=== PATIENT | female | born 1990 ===

== ENCOUNTER 2019-07-13 15:48 | Inpatient (IN) | payer OTHER ==
[2019-07-13] MEDS ORDERED: Butorphanol 1 MG/ML SDV IVPUSH PRN (20:16)
[2019-07-13] MEDS ORDERED: Water For Irrigation,Sterile 1,000 ML Container IRR PRN (20:16)
[2019-07-13] MEDS ORDERED: Tranexamic Acid 1,000 MG in Sodium Chloride 0.9% 100 ML IV PRN (20:16)
[2019-07-13] MEDS ORDERED: Sodium Chloride 0.9% 10 ML SDV IV PRN (20:16)
[2019-07-13] MEDS ORDERED: Sodium Chloride 0.9% 2.5 ML Syringe FLUSH PRN (20:16)
[2019-07-13] MEDS ORDERED: Lidocaine 1% 50 ML MDV INJECT PRN (20:16)
[2019-07-13] MEDS ORDERED: Terbutaline 1 MG/ML SDV SUBCUT PRN (20:16)
[2019-07-13] MEDS ORDERED: Ondansetron 4 MG/2 ML SDV IVPUSH PRN (20:16)
[2019-07-13] MEDS ORDERED: Misoprostol 200 MCG Tab PO PRN (20:16)
[2019-07-13] MEDS ORDERED: Carboprost Tromethamine 250 MCG/1 ML Amp IM PRN (20:16)
[2019-07-13] MEDS ORDERED: Sodium Chloride 0.9% 10 ML Syringe FLUSH PRN (20:16)
[2019-07-13] MEDS ORDERED: Methylergonovine 0.2 MG/1 ML Amp IM PRN (20:16)
[2019-07-13] MEDS ORDERED: Oxytocin/0.9 % Sodium Chloride 30 UNIT/500 ML BAG IV SCH ×2 (20:30)
[2019-07-13] MEDS: Misoprostol 25 MCG (1/4 of 100 MCG) Tab VAG PRN (20:42)
[2019-07-14] MEDS: Misoprostol 25 MCG (1/4 of 100 MCG) Tab VAG PRN (01:18)
[2019-07-14] MEDS: Lactated Ringers 1,000 ML IV SCH ×2 (05:49→14:06)
[2019-07-14] MEDS: Nalbuphine 10 MG/1 ML Vial IVPUSH PRN ×2 (09:05→12:33)
[2019-07-14] MEDS ORDERED: fentaNYL 100 MCG/2 ML SDV ONE (13:42)
[2019-07-14] MEDS ORDERED: Acetaminophen 500 MG Tab PO PRN ×2 (16:38)
[2019-07-14] MEDS ORDERED: Ibuprofen 800 MG Tab PO PRN (16:38)
[2019-07-14] MEDS ORDERED: Witch Hazel Medicated Pads 40/Jar TOP PRN (16:38)
[2019-07-14] MEDS ORDERED: Bisacodyl 10 MG Supp RECTAL PRN (16:38)
[2019-07-14] MEDS ORDERED: Ibuprofen 400 MG Tab PO PRN (16:38)
[2019-07-14] MEDS ORDERED: Lanolin 100% Cream 7 GM Tube TOP PRN (16:38)
[2019-07-14] MEDS ORDERED: Docusate Sodium 100 MG Cap PO PRN (16:38)
[2019-07-14] MEDS ORDERED: Benzocaine/Menthol 20%-0.5% Spray 78 GM Cannister TOP PRN (16:38)
--- NOTE | 2019-07-14 19:21 | PCM.PREANE ---
Preanesthetic Assessment - Anesthesia/Transfusion/Family Hx Anesthesia History: Prior Anesthesia Without Reaction Family History of Anesthesia Reaction: No Transfusion History: No Prior Transfusion(s) Intubation History: Unknown - Review of Systems General: No Symptoms Pulmonary: No Symptoms Cardiovascular: No Symptoms Gastrointestinal: No Symptoms Neurological: No Symptoms Other: Reports: None - Physical Assessment Height: 5 ft 6 in Weight: 92.986 kg ASA Class: 2 Mental Status: Alert & Oriented x3 Airway Class: Mallampati = 1 Dentition: Reports: Normal Dentition Thyro-Mental Finger Breadths: 3 Mouth Opening Finger Breadths: 3 ROM/Head Extension: Full Lungs: Clear to Auscultation, Normal Respiratory Effort Cardiovascular: Regular Rate, Regular Rhythm - Lab Values: Laboratory Last Values WBC 9.24 K/uL (4.0-11.0) 07/13/19 20: RBC 4.50 M/uL (4.30-5.90) 07/13/19 20: Hgb 12.5 g/dL (12.0-16.0) 07/13/19 20: Hct 39.1 % (36.0-46.0) 07/13/19 20: MCV 86.9 fL (80.0-98.0) 07/13/19 20: MCH 27.8 pg (27.0-32.0) 07/13/19 20: MCHC 32.0 g/dL (31.0-37.0) 07/13/19 20: RDW Std Deviation 43.5 fl (28.0-62.0) 07/13/19 20: RDW Coeff of Og 14 % (11.0-15.0) 07/13/19 20: Plt Count 341 K/uL (150-400) 07/13/19 20: MPV 9.80 fL (7.40-12.00) 07/13/19 20: Nucleated RBC % 0.3 /100WBC 07/13/19 20: Nucleated RBCs # 0 K/uL 07/13/19 20:31 Blood Type O POSITIVE 07/13/19 20:31 Antibody Screen NEGATIVE 07/13/19 20:31 - Allergies Allergies/Adverse Reactions: Allergies Allergy/AdvReac Type Severity Reaction Status Date / Time No Known Allergies Allergy Verified 07/13/19 20:14 - Blood Blood Available: No - Anesthesia Plan Pre-Op Medication Ordered: None - Acknowledgements Anesthesia Type Planned: Epidural Pt an Appropriate Candidate for the Planned Anesthesia: Yes Alternatives and Risks of Anesthesia Discussed w Pt/Guardian: Yes Pt/Guardian Understands and Agrees with Anesthesia Plan: Yes PreAnesthesia Questionnaire HEENT History: Reports: Impaired Vision Cardiovascular History: Reports: None Respiratory History: Reports: None Gastrointestinal History: Reports: None Genitourinary History: Reports: None [employer] History: Reports: Musculoskeletal History: Reports: None Neurological History: Reports: None Psychiatric History: Reports: None Endocrine/Metabolic History: Reports: None Hematologic History: Reports: None Immunologic History: Reports: None Oncologic (Cancer) History: Reports: None Dermatologic History: Reports: None - Infectious Disease History Infectious Disease History: Reports: Herpes - Past Surgical History HEENT Surgical History: Reports: Oral Surgery Female Surgical History: Reports: LEEP - SUBSTANCE USE Smoking Status *Q: Never Smoker Recreational Drug Use History: No - HOME MEDS Home Medications: Home Meds Pnv No.95/Ferrous Fum/Folic AC [ Tablet] 1 tab PO DAILY 07/13/19 [ History] - CURRENT (IN HOUSE) MEDS Current Meds: Current Medications Acetaminophen (Tylenol Extra Strength) 500 mg PO Q4H PRN PRN Reason: Pain Acetaminophen (Tylenol Extra Strength) 1,000 mg PO Q4H PRN PRN Reason: Pain Benzocaine/Menthol (Dermoplast Pain Relief 20%-0.5% [place]) 78 gm TOP ASDIRECTED PRN PRN Reason: Perineal Comfort Measure Last Admin: 07/14/19 17:57 Dose: 1 spray Bisacodyl (Dulcolax) 10 mg RECTAL ONETIME PRN PRN Reason: Constipation Butorphanol Tartrate (Stadol) 1 mg IVPUSH Q1H PRN PRN Reason: Pain Last Admin: 07/14/19 05:50 Dose: 1 mg Carboprost Tromethamine (Hemabate Ds) 250 mcg IM ASDIRECTED PRN PRN Reason: Post Hemorrhage Docusate Sodium (Colace) 100 mg PO BID PRN PRN Reason: Constipation Emollient Ointment (Lansinoh Hpa) 0 gm TOP ASDIRECTED PRN PRN Reason: Sore Nipples Lactated Ringer's (Ringers, Lactated) 1,000 mls @ 150 mls/hr IV ASDIRECTED VALERIE Last Infusion: 07/14/19 14:17 Dose: 150 mls/hr Oxytocin/Sodium Chloride (Oxytocin 30 Unit/500 Ml-Ns) 30 unit in 500 mls @ 999 mls/hr IV TITRATE VALERIE Last Admin: 07/14/19 15:51 Dose: 999 mls/hr Oxytocin/Sodium Chloride (Oxytocin 30 Unit/500 Ml-Ns) 30 unit in 500 mls @ 2 mls/hr IV TITRATE VALERIE; Protocol Last Titration: 07/14/19 14:05 Dose: 0 munits/min, 0 mls/hr Tranexamic Acid 1,000 mg/ (Sodium Chloride) 110 mls @ 660 mls/hr IV ONETIME PRN PRN Reason: Bleeding Ibuprofen (Motrin) 400 mg PO Q4H PRN PRN Reason: Pain Ibuprofen (Motrin) 800 mg PO Q6H PRN PRN Reason: Pain Last Admin: 07/14/19 17:58 Dose: 800 mg Lidocaine HCl (Xylocaine 1%) 50 ml INJECT ONETIME PRN PRN Reason: Laceration repair Methylergonovine Maleate (Methergine) 0.2 mg IM ASDIRECTED PRN PRN Reason: Post Hemorrhage Misoprostol (Cytotec) 200 mcg PO ONETIME PRN PRN Reason: Post Hemorrhage Misoprostol (Cytotec) 25 mcg VAG Q4H PRN PRN Reason: Cervical Ripening Last Admin: 07/14/19 01:18 Dose: 25 mcg Nalbuphine HCl (Nubain) 10 mg IVPUSH Q1H PRN PRN Reason: Pain (severe 7-10) Last Admin: 07/14/19 12:33 Dose: 10 mg Ondansetron HCl (Zofran) 4 mg IVPUSH Q6H PRN PRN Reason: Nausea/Vomiting Sodium Chloride (Saline Flush) 10 ml FLUSH ASDIRECTED PRN PRN Reason: Keep Vein Open Sodium Chloride (Saline Flush) 2.5 ml FLUSH ASDIRECTED PRN PRN Reason: Keep Vein Open Sodium Chloride (Normal Saline) 10 ml IV ASDIRECTED PRN PRN Reason: IV Use Sterile Water (Sterile Water For Irrigation) 1,000 ml IRR ASDIRECTED PRN PRN Reason: delivery Terbutaline Sulfate (Brethine) 0.25 mg SUBCUT ASDIRECTED PRN PRN Reason: Tacysystole Jaylene Cutler (Lacicks) 1 pad TOP ASDIRECTED PRN PRN Reason: comfort care Last Admin: 07/14/19 17:57 Dose: 1 pad Discontinued Medications Fentanyl (Sublimaze) Confirm Administered Dose 100 mcg .ROUTE .STK-MED ONE Stop: 07/14/19 13:43
--- NOTE | 2019-07-14 21:30 | OR ---
SURGEON: Reuben Harrington MD DATE OF PROCEDURE: 07/14/2019 INDICATION: A 28-year-old. G2, P 1-0-0-1, at 39 weeks and 1 day admitted for induction of labor due to history of macrosomia in prior . Her prior was complicated by prolonged active labor, baby measuring 9 pounds and 2 ounces and clavicular fracture of the baby. The estimated weight for this baby is of 9 pounds. She was offered primary section, which she declined and desired to proceed with induction of labor. The patient has a history of HSV-2, is on Valtrex for suppression. She does not have active lesions. She has negative group B strep. The patient received Cytotec and Pitocin for induction of labor and progressed to fully dilated. She had an epidural with good pain control. She had a category 1 tracing. PREOPERATIVE DIAGNOSES: 1. [place] intrauterine at 39 weeks and 1 day. 2. History of macrosomia. POSTOPERATIVE DIAGNOSES: 1. [place] intrauterine at 39 weeks and 1 day. 2. History of macrosomia. PROCEDURE PERFORMED: Normal spontaneous vaginal delivery, repair of first-degree laceration. ANESTHESIA: Epidural. EBL: 300cc FINDINGS: A viable male infant. score of 9 and 9. Weight of 4080g. DESCRIPTION OF PROCEDURE: The patient pushed with contractions for approximately 10 minutes. head descended from +1 station to . head delivered in occiput anterior position over intact perineum. Restituted ROT. Anterior shoulder delivered easily followed by posterior shoulder. No nuchal cord was noted. Remaining body delivered without difficulty. Baby was placed on maternal chest and evaluated by awaiting nursery staff. The umbilical cord was clamped and cut after 60 seconds and no longer pulsating. The cord gases were obtained. The placenta was removed with gentle traction on the umbilical cord. It was examined and found to be intact with 3-vessel cord. Pitocin was started. The uterus was firm with fundal massage and the bleeding was light. The perineum was examined and first-degree laceration was noted. The laceration was repaired with 3-0 Vicryl in usual fashion. Hemostasis was confirmed. The patient was given care instructions. She tolerated the procedure well. LUIZA / JARETT /[id number] PAT
--- NOTE | 2019-07-15 07:38 | PCM48HPAN ---
Post Anesthesia Note - EVALUATION WITHIN 48HRS OF ANESTHETIC Vital Signs in Normal Range: Yes Patient Participated in Evaluation: Yes Respiratory Function Stable: Yes Airway Patent: Yes Cardiovascular Function Stable: Yes Hydration Status Stable: Yes Pain Control Satisfactory: Yes Nausea and Vomiting Control Satisfactory: Yes Mental Status Recovered: Yes Vital Signs: Last Vital Signs Temp 36.6 C 07/15/19 04:24 Pulse 84 07/15/19 04:24 Resp 14 07/15/19 04:24 BP 130/73 07/15/19 04:24 Pulse Ox 96 07/15/19 04:24
[2019-07-15 08:13] VITALS: BP 119/72; PULSE 73
--- NOTE | 2019-07-15 09:01 | PCM.PNPP ---
- General Info Date of Service: 07/15/19 Functional Status: Reports: Pain Controlled, Tolerating Diet, Ambulating, Urinating - Review of Systems General: Reports: No Symptoms HEENT: Reports: No Symptoms Pulmonary: Reports: No Symptoms Cardiovascular: Reports: No Symptoms Gastrointestinal: Reports: No Symptoms Genitourinary: Reports: No Symptoms Musculoskeletal: Reports: No Symptoms Skin: Reports: No Symptoms Neurological: Reports: No Symptoms Psychiatric: Reports: No Symptoms - Patient Data Vital Signs - Most Recent: Last Vital Signs Temp 36.4 C 07/15/19 08:00 Pulse 73 07/15/19 08:00 Resp 16 07/15/19 08:00 BP 119/72 07/15/19 08:00 Pulse Ox 97 07/15/19 08:00 Weight - Most Recent: 205 lb I&O - Last 24 Hours: Intake & Output 07/14/19 07/15/19 07/15/19 22:59 06:59 14:59 Intake Total 1000 Output Total 2500 600 Balance -1500 -600 Lab Results - Last 24 Hours: Laboratory Results - last 24 hr 07/14/19 07/15/19 Range/Units 15:48 06:05 Hgb 11.7 L (12.0-16.0) g/dL Hct 37.9 (36.0-46.0) % Cord ABG pH 7.177 L (7.18-7.38) Cord ABG Base Excess -8 (-10--2) Cord VBG pH 7.239 L (7.25-7.45) Cord VBG Base Excess -8 (-10--2) Med Orders - Current: Current Medications Acetaminophen (Tylenol Extra Strength) 500 mg PO Q4H PRN PRN Reason: Pain Acetaminophen (Tylenol Extra Strength) 1,000 mg PO Q4H PRN PRN Reason: Pain Benzocaine/Menthol (Dermoplast Pain Relief 20%-0.5% [place]) 78 gm TOP ASDIRECTED PRN PRN Reason: Perineal Comfort Measure Last Admin: 07/14/19 17:57 Dose: 1 spray Bisacodyl (Dulcolax) 10 mg RECTAL ONETIME PRN PRN Reason: Constipation Butorphanol Tartrate (Stadol) 1 mg IVPUSH Q1H PRN PRN Reason: Pain Last Admin: 07/14/19 05:50 Dose: 1 mg Carboprost Tromethamine (Hemabate Ds) 250 mcg IM ASDIRECTED PRN PRN Reason: Post Hemorrhage Docusate Sodium (Colace) 100 mg PO BID PRN PRN Reason: Constipation Last Admin: 07/14/19 21:12 Dose: 100 mg Emollient Ointment (Lansinoh Hpa) 0 gm TOP ASDIRECTED PRN PRN Reason: Sore Nipples Last Admin: 07/14/19 23:25 Dose: 1 tube Lactated Ringer's (Ringers, Lactated) 1,000 mls @ 150 mls/hr IV ASDIRECTED VALERIE Last Infusion: 07/14/19 14:17 Dose: 150 mls/hr Oxytocin/Sodium Chloride (Oxytocin 30 Unit/500 Ml-Ns) 30 unit in 500 mls @ 999 mls/hr IV TITRATE VALERIE Last Admin: 07/14/19 15:51 Dose: 999 mls/hr Oxytocin/Sodium Chloride (Oxytocin 30 Unit/500 Ml-Ns) 30 unit in 500 mls @ 2 mls/hr IV TITRATE VALERIE; Protocol Last Titration: 07/14/19 14:05 Dose: 0 munits/min, 0 mls/hr Tranexamic Acid 1,000 mg/ (Sodium Chloride) 110 mls @ 660 mls/hr IV ONETIME PRN PRN Reason: Bleeding Ibuprofen (Motrin) 400 mg PO Q4H PRN PRN Reason: Pain Ibuprofen (Motrin) 800 mg PO Q6H PRN PRN Reason: Pain Last Admin: 07/14/19 17:58 Dose: 800 mg Lidocaine HCl (Xylocaine 1%) 50 ml INJECT ONETIME PRN PRN Reason: Laceration repair Methylergonovine Maleate (Methergine) 0.2 mg IM ASDIRECTED PRN PRN Reason: Post Hemorrhage Misoprostol (Cytotec) 200 mcg PO ONETIME PRN PRN Reason: Post Hemorrhage Misoprostol (Cytotec) 25 mcg VAG Q4H PRN PRN Reason: Cervical Ripening Last Admin: 07/14/19 01:18 Dose: 25 mcg Nalbuphine HCl (Nubain) 10 mg IVPUSH Q1H PRN PRN Reason: Pain (severe 7-10) Last Admin: 07/14/19 12:33 Dose: 10 mg Ondansetron HCl (Zofran) 4 mg IVPUSH Q6H PRN PRN Reason: Nausea/Vomiting Sodium Chloride (Saline Flush) 10 ml FLUSH ASDIRECTED PRN PRN Reason: Keep Vein Open Sodium Chloride (Saline Flush) 2.5 ml FLUSH ASDIRECTED PRN PRN Reason: Keep Vein Open Sodium Chloride (Normal Saline) 10 ml IV ASDIRECTED PRN PRN Reason: IV Use Sterile Water (Sterile Water For Irrigation) 1,000 ml IRR ASDIRECTED PRN PRN Reason: delivery Terbutaline Sulfate (Brethine) 0.25 mg SUBCUT ASDIRECTED PRN PRN Reason: Tacysystole Witch Josep (Tucks) 1 pad TOP ASDIRECTED PRN PRN Reason: comfort care Last Admin: 07/14/19 17:57 Dose: 1 pad Discontinued Medications Fentanyl (Sublimaze) Confirm Administered Dose 100 mcg .ROUTE .STK-MED ONE Stop: 07/14/19 13:43 Last Admin: 07/15/19 08:26 Dose: Not Given - Infant Interaction Infant Disposition, : at Bedside Interaction: Holding Feeding: Attempted ; Nursed Fair/Poor Support Person: Significant Other - Recovery Exam Fundal Tone: Firm Fundal Level: At Umbilicus Fundal Placement: Midline Lochia Amount: Small Lochia Color: Rubra/Red Perineum Description: Intact, Minimal Bruising/Swelling Episiotomy/Laceration: Approximated Bladder Status: Voiding Urinary Elimination: Voided - Exam General: Alert, Oriented, Cooperative, No Acute Distress HEENT: Pupils Equal, Pupils Reactive, EOMI Neck: Supple, Trachea Midline, No JVD Lungs: Normal Respiratory Effort GI/Abdominal Exam: Soft, Non-Tender, No Organomegaly, No Distention Extremities: Normal Inspection, Normal Range of Motion, Non-Tender, No Pedal Edema Skin: Warm, Dry, Intact Wound/Incisions: Healing Well Neurological: No New Focal Deficit Psy/Mental Status: Alert, Normal Affect, Normal Mood - Problem List Review Problem List Initiated/Reviewed/Updated: Yes - My Orders Last 24 Hours: My Active Orders 07/14/19 16:38 Patient Status [ADT] Routine May Shower [RC] ASDIRECTED Up ad Amada [RC] ASDIRECTED Acetaminophen [Tylenol Extra Strength] 1,000 mg PO Q4H PRN Acetaminophen [Tylenol Extra Strength] 500 mg PO Q4H PRN Benzocaine/Menthol [Dermoplast Pain Relief 20%-0.5% [place]] 78 gm TOP ASDIRECTED PRN Docusate Sodium [Colace] 100 mg PO BID PRN Ibuprofen [Motrin] 400 mg PO Q4H PRN Ibuprofen [Motrin] 800 mg PO Q6H PRN Lanolin [Lansinoh HPA] See Dose Instructions TOP ASDIRECTED PRN bisacodyL [Dulcolax] 10 mg RECTAL ONETIME PRN witch Josep [Tucks] 1 pad TOP ASDIRECTED PRN Assess Lochia [WOMSER] Per Unit Routine Assess Uterine Involution [WOMSER] Per Unit Routine Breast Pump [WOMSER] Per Unit Routine Perineal Care [OM.PC] Per Unit Routine Peripheral IV Discontinue [OM.PC] Routine Sitz Bath [OM.PC] Per Unit Routine 07/14/19 16:39 Cooling Warming Measures [RC] ASDIRECTED Ice Therapy [OM.PC] Per Unit Routine 07/14/19 Dinner Regular Diet [DIET] - Assessment Assessment:: 28yo PPD1 s/p . Stable and recovering well. - Plan Plan:: Vitals stable Bleeding light. Hgb wnl. No s/s of anemia Tolerating PO, ambulating and supplementing with formula. Stable for discharge home. Reviewed care instructions.
== END 2019-07-15 17:35 | disposition home or self-care (01) | DRG 807 ==
LOC: MW.OB 15:48 → OBSVTOIN 07-14 15:48 → MW.OB 07-14 18:00
PROVIDERS: ADMIT Obstetrics & Gynecology; ATTEND Obstetrics & Gynecology
PROC: 10E0XZZ Delivery of Products of Conception, External Approach (ICD-10-PCS; principal; 2019-07-13)
PROC: 3E0P7VZ Introduction of Hormone into Female Reproductive, Via Natural or Artificial Opening (ICD-10-PCS; 2019-07-13)
PROC: 3E033VJ Introduction of Other Hormone into Peripheral Vein, Percutaneous Approach (ICD-10-PCS; 2019-07-13)
PROC: 0HQ9XZZ Repair Perineum Skin, External Approach (ICD-10-PCS; 2019-07-13)
PROC: 3E0R3BZ Introduction of Anesthetic Agent into Spinal Canal, Percutaneous Approach (ICD-10-PCS; 2019-07-13)
PROC: 00HU33Z Insertion of Infusion Device into Spinal Canal, Percutaneous Approach (ICD-10-PCS; 2019-07-13)
DX: O70.0 First degree perineal laceration during delivery (principal); Z37.0 Single live birth; Z3A.39 39 weeks gestation of pregnancy
CPT/HCPCS: 01967; 36415; 51702; 59025; 59409; 82803; 85014; 85018; 85027; 86592; 86593; 86850; 86900; 86901; A9270-GY; J0595; J2300; J2590; J7120